=== PATIENT | male | born 1990 | race Caucasian/White ===

== ENCOUNTER 2018-02-02 12:31 | Emergency (ER) | payer SELFPAY ==
[~2018-02-02] VITALS: Ht 165.1 cm; Wt 56.0 kg
[2018-02-02 13:00] VITALS: Ht 165.1 cm; Wt 56.0 kg
[2018-02-02 16:00] VITALS: BP 108/76
== END 2018-02-02 16:00 | disposition home or self-care (01) ==
LOC: ED 12:31
DX: S22.41XA Multiple fractures of ribs, right side, initial encounter for closed fracture (principal); J45.909 Unspecified asthma, uncomplicated; X58.XXXA Exposure to other specified factors, initial encounter; Y93.89 Activity, other specified; Y92.89 Other specified places as the place of occurrence of the external cause; Y99.8 Other external cause status

== ENCOUNTER 2018-02-02 20:05 | Emergency (ER) | payer SELFPAY ==
[~2018-02-02] VITALS: Ht 165.1 cm; Wt 56.2 kg
[2018-02-02 20:17] VITALS: Ht 165.1 cm; Wt 56.2 kg
[2018-02-02 21:36] VITALS: BP 112/70
== END 2018-02-02 21:36 | disposition home or self-care (01) ==
LOC: ED 20:05
DX: S22.31XG Fracture of one rib, right side, subsequent encounter for fracture with delayed healing (principal); J45.909 Unspecified asthma, uncomplicated; Z88.6 Allergy status to analgesic agent; X58.XXXD Exposure to other specified factors, subsequent encounter
CPT/HCPCS: J1885